=== PATIENT | female | born 1955 | race Caucasian/White ===

== ENCOUNTER 2021-07-04 10:47 | Emergency (ER) | payer SELFPAY ==
[~2021-07-04] VITALS: Ht 167.6 cm; Wt 86.2 kg
[2021-07-04 11:08] VITALS: BP 177/107
== END 2021-07-04 13:19 | disposition left against medical advice (07) ==
LOC: ER 10:47 → EDBD 10:47 → ER 13:19
DX: R42 Dizziness and giddiness (principal); R51.9 Headache, unspecified; R06.02 Shortness of breath; F17.210 Nicotine dependence, cigarettes, uncomplicated; Z90.710 Acquired absence of both cervix and uterus; Z53.29 Procedure and treatment not carried out because of patient's decision for other reasons
CPT/HCPCS: 70450; 71046; 93005